=== PATIENT | female | born 1940 | race Hispanic/Latino ===

== ENCOUNTER → 2019-10-19 | Outpatient (CLI) | payer OTHER, MEDICARE ==
[~2019-10-19] MED LIST: ALEN70SO3 PO; AMLO5TAB9 PO; CALC-190 PO; INSU100I13 SQ; METF-444 PO; METO-391 PO; PRAV40TA3 PO; VALS160T29 PO
== END | disposition home or self-care (01) ==
LOC: RAH 14:18
PROVIDERS: ATTEND Family Medicine
DX: Z12.31 Encounter for screening mammogram for malignant neoplasm of breast (principal)
CPT/HCPCS: 77067